=== PATIENT | female | born 1985 | race Caucasian/White ===

== ENCOUNTER 2020-08-13 15:22 | Outpatient (REF) | payer MEDICAID, SELFPAY ==
[2020-08-13 15:04] LABS: C Diff PCR Negative (Negative)
[2020-08-13 20:10] LABS: Campylobacter PCR Negative (Negative); Salmonella PCR Negative (Negative); Shiga Toxin PCR Negative (Negative); Shigella/Enteroinvasive Ecoli Negative (Negative)
[2020-08-14 18:47] LABS: Calprotectin <15.6 mcg/g
== END 2020-08-13 15:23 | disposition home or self-care (01) ==
LOC: NCHCN 15:22
PROVIDERS: Visit Provider Family Medicine
DX: R19.7 Diarrhea, unspecified (principal)
CPT/HCPCS: 87329; 87493; 87505; 83630; 83993

== ENCOUNTER 2021-04-30 17:42 | Outpatient (REF) | payer MEDICAID, SELFPAY ==
[2021-05-02 16:20] LABS: COVID-19 RT-PCR UVMMC Result Negative (Negative)
== END 2021-04-30 17:43 | disposition home or self-care (01) ==
LOC: LBN 17:42
PROVIDERS: Visit Provider Nurse Practitioner Family
DX: Z20.822 Contact with and (suspected) exposure to COVID-19 (principal); J06.9 Acute upper respiratory infection, unspecified
CPT/HCPCS: U0003

== ENCOUNTER 2023-04-24 15:27 | Outpatient (REF) | payer MEDICAID, SELFPAY ==
[2023-04-24 15:01] LABS: HCT 32.6 % (36.0-46.0); MCH 24.6 pg (27.0-33.0); MCHC 30.7 % (32.0-36.0); MCV 80 fL (80-95); MPV 10.2 fL (8.0-11.0); Platelet Count 234 10^3/uL (130-400); RBC 4.07 10^6/uL (3.93-5.22); RDW 13.8 % (11.7-14.6); RDW-SD 39.9 fL; WBC 5.57 10^3/uL (4.4-10.8)
[2023-04-24 15:29] LABS: ALT 18 U/L (14-59); AST 11 U/L (15-37); Alkaline Phosphatase 57 U/L (46-116); Anion Gap 10.8 mmol/L (3-11); BUN 11 mg/dL (7-18); Bilirubin, Total 0.4 mg/dL (0.2-1.0); CO2 26.2 mmol/L (21.0-32.0); CREATININE 0.6 mg/dL (0.55-1.02); Calcium 8.7 mg/dL (8.5-10.1); Chloride 104 mmol/L (98-107); Estimated GFR 118.49 (mL/min/1.73m2); Glucose 87 mg/dL (74-106); Potassium 4.2 mmol/L (3.5-5.1); Sodium 141 mmol/L (136-145); TSH (W/Ref FT4) 0.95 uIU/mL (0.36-3.74); Total Protein 7.1 g/dL (6.4-8.2)
--- OUTSIDE RECORDS SUMMARY | 2023-04-24 15:31 | XMS_ITS | Continuity of Care Document ---
Author Name Unknown Organization [facility] Ambulatory Clinics Address [address] [place] [address] Care Team Providers Care Therapist'S Assistant Name Role Phone TANNER BRENNER Primary Care Physician Encounter [facility] NBR [id number] Date(s): 04/01/22 - 04/01/22 [facility] Ambulatory [facility] [address] [place], [place] [address] Encounter Diagnosis Personal history of cervical dysplasia(Discharge Diagnosis) - 04/01/22 Cervical high risk human papillomavirus (HPV) DNA test positive(Discharge Diagnosis) - 04/01/22 Discharge Disposition: Home or Self Care Attending Physician: Ayah Leyva APRN Allergies, Adverse Reactions, Alerts No Known Medication Allergies Substance Reaction Severity Status Banana Stomach upset Moderate Active Pineapple Stomach upset Moderate Active Functional Status 04/01/22 Other exposure to Infectious Disease Non e Medications Digestive Advantage Daily Probiotics oral capsule 1 cap, Oral, Daily, # 30 cap, 0 Refill(s) Start Date: 03/31/22 Status: Ordered multivitamin adult, oral tablet 1 tab, Oral, Daily, # 30 tab, 0 Refill(s) Start Date: 03/31/22 Status: Ordered Problem List Condition Confirmation Course Effective Dates Status H ealth Status Informant Acne Confirmed Active Altered bowel habits Confirmed Active Anxiety Confirmed Active Chronic diarrhea Confirmed Active Esophagitis Confirmed Active Personal history of cervical dysplasia Confirmed Active Cervical high risk human papillomavirus (HPV) DNA test positive Confirmed Active Dermatitis Confirmed Active Iron deficiency anemia Confirmed Active Lymphocytic colitis Confirmed Active Small intestinal bacterial overgrowth (SIBO) Confirmed Active Procedures Procedure Date Related Diagnosis Body Site Status Colonoscopy 02/2021 Completed EGD - Esophagogastroduodenoscopy 02/2021 Completed Bilateral tubal ligation 12/19/19 Completed Colonoscopy 2014 Completed EGD - Esophagogastroduodenoscopy 2015 Completed Vital Signs Most recent to oldest [Reference Range]: 1 Blood Pressure [90-140/60-90 mmHg] 118/8 2mmHg (04/01/22 4:01 PM) Weight 65.0 kg (04/01/22 4:01 PM) Weight Measured (lbs) 143.3 lb (04/01/22 4:01 PM) [place] Body Weight Calculated 54.7 kg (04/01/22 4:01 PM) Height 162.56 cm (04/01/22 4:01 PM) Height/Length Measured (inches) 64 inch (04/01/22 4:01 PM) BSA Measured 1.71 m2 (04/01/22 4:01 PM) Body Mass Index 24.6 kg/m2 (04/01/22 4:01 PM) Social History Social History Type Response Smoking Status Smoking tobacco use: Never tobacco user;Never entered on: 03/31/22 Sex Female Patient Care team information Care Team Personnel Name: TANNER BRENNER Position: No Access Member Role: Primary Care Physician Address: Address: [address] [place] [address] Care Team Related Persons Name: LOLA COLLADO
[2023-04-24 17:35] LABS: Vitamin B12 437 pg/mL (193-986)
[2023-04-24 18:02] LABS: Ferritin 5 ng/mL (8-252); Folate > 20.0 ng/mL (8.6-20.0)
== END 2023-04-24 15:28 | disposition home or self-care (01) ==
LOC: NCHCN 15:27
PROVIDERS: Visit Provider Family Medicine
DX: D64.9 Anemia, unspecified (principal); R53.83 Other fatigue
CPT/HCPCS: 80053; 85027; 82607; 82728; 82746; 84443

== ENCOUNTER 2023-07-31 17:59 | Outpatient (REF) | payer BC, SELFPAY ==
[2023-07-31 19:31] LABS: HCT 32.4 % (36.0-46.0); HGB 10.3 g/dL (11.2-15.7); MCH 26.6 pg (27.0-33.0); MCHC 31.8 % (32.0-36.0); MCV 84 fL (80-95); MPV 10.8 fL (8.0-11.0); Platelet Count 227 10^3/uL (130-400); RBC 3.87 10^6/uL (3.93-5.22); RDW-SD 45.5 fL; WBC 6.16 10^3/uL (4.4-10.8)
[2023-07-31 20:15] LABS: Ferritin 20 ng/mL (8-252)
== END 2023-07-31 18:00 | disposition home or self-care (01) ==
LOC: NCHCN 17:59
PROVIDERS: Visit Provider Family Medicine
DX: D64.9 Anemia, unspecified (principal)
CPT/HCPCS: 85027; 82728

== ENCOUNTER 2023-11-06 15:54 | Outpatient (REF) | payer BC, SELFPAY ==
--- OUTSIDE RECORDS SUMMARY | 2023-11-06 15:56 | XMS_ITS | Continuity of Care Document ---
Author Name Unknown Organization [facility] Ambulatory Clinics Address [address] [place] [address] Care Team Providers Care Laborer [employer] Name Role Phone ELIDIA HAIRSTON, TANNER Fermin Primary Care Physician [facility]counter [facility] NBR [id number] Date(s): 05/15/23 - 05/15/23 [facility] [address] [place] [address]- Encounter Diagnosis Atypical glandular cells on cervical Pap smear(Discharge Diagnosis) - 05/15/23 Human papillomavirus (HPV) type 18 DNA detected in cervical specimen(Discharge Diagnosis) - 05/15/23 Discharge Disposition: Home or Self Care Attending Physician: Grzegorz Hall MD Allergies, Adverse Reactions, Alerts No Known Medication Allergies Substance Reaction Severity Status Banana Stomach upset Moderate Active Pineapple Stomach upset Moderate Active Assessment and Plan Future Appointments Medications ferrous sulfate 325 mg (65 mg elemental iron) oral delayed release tablet 0 Refill(s) Start Date: 04/28/23 Status: Ordered multivitamin adult, oral tablet 1 tab, Oral, Daily, # 30 tab, 0 Refill(s) Start Date: 03/31/22 Status: Ordered Problem List Condition Confirmation Course Effective Dates Status H ealt Status Informant Acne Confirmed Active Altered bowel habits Confirmed Active Anxiety Confirmed Active Atypical glandular cells on cervical Pap smear Confirmed Active Chronic diarrhea Confirmed Active Esophagitis Confirmed Active Personal history of cervical dysplasia Confirmed Active Human papillomavirus (HPV) type 18 DNA detected in cervical specimen Confirmed Active Cervical high risk human papillomavirus (HPV) DNA test positive Confirmed Active Dermatitis Confirmed Active Iron deficiency anemia Confirmed Active Lymphocytic colitis Confirmed Active Small intestinal bacterial overgrowth (SIBO) Confirmed Active Procedures Procedure Date Related Diagnosis Body Site Status Colonoscopy 02/2021 Completed EGD - Esophagogastroduodenoscopy 02/2021 Completed Bilateral tubal ligation 12/19/19 Completed Colonoscopy 2014 Completed EGD - Esophagogastroduodenoscopy 2014 Completed Vital Signs Most recent to oldest [Reference Range]: 1 Blood Pressure [90-140/60-90 mmHg] 124/6 6mmHg (05/15/23 9:03 AM) Mean Arterial Pressure, Cuff [70-110 mmH g] 85 mmHg (05/15/23 9:03 AM) Weight 62.1 kg (05/15/23 9:03 AM) Weight Measured (lbs) 136.907 lb (05/15/23 9:03 AM) Weight Dosing 62.100 kg (05/15/23 9:03 AM) [place] Body Weight Calculated 54.7 kg (05/15/23 9:03 AM) Height 162.56 cm (05/15/23 9:03 AM) Height/Length Measured (inches) 64 inch (05/15/23 9:03 AM) BSA Measured 1.67 m2 (05/15/23 9:03 AM) Body Mass Index 23.5 kg/m2 (05/15/23 9:03 AM) Social History Social History Type Response Smoking Status Smoking tobacco use: Never tobacco user;Never entered on: 04/28/23 Sex Female Physician Outpatient Note * Grzegorz Hall MD: PERFORM Event Display: Office Clinic Note Physician Authored Date: [id number] OXANA COLLADO :1985 Age:38 years Sex:Female Visit Date:05/15/2023 Primary Care Physician: TANNER BRENNER MD Chief Complaint Colposcopy; PAP 04/28/2023: Atypical Endocervical Cells, + HR HPV non 16/18 and type 18 detected History of Present Illness 38yo Female, The patient is here today for a Colposcopy appointment. ??Her last Pap smear on 04/28/2023 returnedshowing Atypical Endocervical Cells (AGC), Not otherwise specified (NOS). ??She was also Positive for High Risk HPV Type-18 and??non- 16/18 HPV DNA.?? She has a history of abnormal Pap smears??and Colposcopy. ??She had Colposcopy on??06/06/2015.?? At that time??2 cervical biopsies were taken that were negative for dysplasia. ?? Abnormal pap smears: 07/31/2020 LSIL, positive HR HPV 18 and non 16/18; 07/14/2017 neg pap, neg HR HPV; 07/03/2016-neg pap, neg hpv, 05/03/2015 neg/+ HPV 18. COLPO 05/2015 Physical Exam Vitals & Measurements BP:??124/66?? HT:??162.56??cm?? WT:??62.1??kg?? BMI:??23.5?? BSA:??1.67?? General: Alert and oriented, well nourished, no acute distress Eye: Pupils equal, EOMI HEENT: Normocephalic, grossly normal hearing, moist oral mucosa, no scleral icterus Lungs: Clear to auscultation, non-labored respiration Heart: Normal rate, regular rhythm, no murmurs Musculoskeletal: Grossly normal range of motion and strength, no tenderness or swelling Skin: Skin is warm, dry, no rashes Neurologic: Awake, alert, and oriented X4 Psychiatric: Cooperative, appropriate mood and affect ?? Vulva: Normal external female genitalia, [place]???s and [place]???s glands normal Bladder: Urethra normal Vagina: No abnormal discharge or blood Cervix: Normal appearance Perineum/Anus: No skin changes or hemorrhoids Procedure COLPOSCOPY: A speculum was placed into the vagina and acetic acid applied to the cervix.?? The Colposcope was used to visualize the cervix under magnification.?? The??colposcopy was Adequate as the full squamocolumnar junction was visualized.?? After viewing the cervix, there were??No??acetowhite??lesions seen.?The cervical Curettings (ECC) were obtained.?Blood loss was minimal. ??The patient toleratedthe procedure well. ?? ENDOMETRIAL BIOPSY: The cervix was visualized and cleaned with??Betadine.?The endometrial Pipelle was easily inserted through the cervical os into the endometrial cavity.?? The endometrial Pipelle was removed. ??Adequate??tissue??was obtained??to send to Pathology. ??The??instruments were removed from the vagina.??There was minimal bleeding.?? The patient??tolerated the procedure well. Assessment/Plan 1.??Atypical glandular cells on cervical Pap smear??R87.619 Ordered: Outside Lab Request, 05/15/23 10:20:00 EST, Stop date 05/15/23 10:20:00 EST, Genpath: ECC and EMB, Atypical glandular cells on cervical Pap smear Human papillomavirus (HPV) type 18 DNA detected in cervical specimen ?? 2.??Human papillomavirus (HPV) type 18 DNA detected in cervical specimen??R87.810 Ordered: Outside Lab Request, 05/15/23 10:20:00 EST, Stop date 05/15/23 10:20:00 EST, Genpath: ECC and EMB, Atypical glandular cells on cervical Pap smear Human papillomavirus (HPV) type 18 DNA detected in cervical specimen ?? At today's appointment, we reviewed her??Pap smear results. ??I discussed??cervical dysplasia,??HPV, and risk for??cervical cancer. I then reviewed the patient's risk factors and explained their rolein her disease process.?? She was??consented for colposcopy??and??endometrial biopsy.?? I explainedhow the procedure is performed with the application of acetic acid??to the cervix, usage of a Colposcope??to visualize the cervix under magnification, and the possibility of ECC, cervical biopsy or both.?? She emptied her bladder, and we then moved forward with the procedure.?? Today's Colposcopy was Negative.?? An ECC was??obtained and sent to the lab.?? Endometrial Biopsy was done. ??If the results are??Negative or contain??a low-grade??lesion, then??follow-up Pap smear and HPV screening is??recommended in 12 months. ??If there is a high-grade lesion present then an outpatient surgical proce dure??is??likely required to excise the??abnormal??precancerous cells. Problem List/Past Medical History Ongoing Acne Altered bowel habits Anxiety Atypical glandular cells on cervical Pap smear Cervical high risk human papillomavirus (HPV) DNA test positive Chronic diarrhea Dermatitis Esophagitis Human papillomavirus (HPV) type 18 DNA detected in cervical specimen Iron deficiency anemia Lymphocytic colitis Personal history of cervical dysplasia Small intestinal bacterial overgrowth (SIBO) Historical Procedure/Surgical History ???Colonoscopy (02/2021)???EGD - Esophagogastroduodenoscopy (02/2021)???Bilateral tubal ligation (12/20/2019)???Colonoscopy (2014)???EGD - Esophagogastroduodenoscopy (2014) Medications ferrous sulfate 325 mg (65 mg elemental iron) oral delayed release tablet multivitamin adult, oral tablet, 1 tab, Oral, Daily Allergies Banana??(Stomach upset) Pineapple??(Stomach upset) No Known Medication Allergies Social History Alcohol Never Electronic Cigarette/Vaping Electronic Cigarette Use: Never. Employment/School Employed, Work/School description: [employer]. Highest education level: University degree(s). Exercise Home/Environment Lives with Children, Significant other. Living situation: Home/Independent. Sexual Sexually active: Yes. Substance Use Never Tobacco Never tobacco user Tobacco Use:. Never Smokeless Tobacco use:. Family History Alive and well: Daughter, Son, Son, Son and Son. Cancer: Sister. Diabetes mellitus: Brother. Healthy adult: Mother and Father.Negative: Sister and Brother. Electronically Signed on 05/15/23 11:39 AM Grzegorz Hall MD Patient Care team information Care Team Personnel Name: TANNER BRENNER MD Position: No Access Member Role: Primary Care Physician Address: Address: [address] [place] [id number] [place] [address] Care Team Related Persons Name: LOLA COLLADO Name: BILL COREY Address: Home [address] [place] [phone] [facility]
--- OUTSIDE RECORDS SUMMARY | 2023-11-06 15:56 | XMS_ITS | Continuity of Care Document ---
Author Name Unknown Organization [facility] Ambulatory Clinics Address [address] [place] [address] Care Team Providers Care Software Configuration Manager Name Role Phone ELIDIA TANNER Fermin Primary Care Physician Encounter [facility] NBR [id number] Date(s): 04/28/23 - 04/28/23 [facility] Ambulatory Clinics [address] [place] [address]- [place] Encounter Diagnosis Pap smear for cervical cancer screening(Discharge Diagnosis) - 04/28/23 Visit for routine refrigerator tester exam(Discharge Diagnosis) - 04/28/23 Discharge Disposition: Home or Self Care Attending Physician: Ayah Leyva APRN Allergies, Adverse Reactions, Alerts No Known Medication Allergies Substance Reaction Severity Status Banana Stomach upset Moderate Active Pineapple Stomach upset Moderate Active Assessment and Plan Future Appointments Medications Digestive Advantage Daily Probiotics oral capsule 1 cap, Oral, Daily, # 30 cap, 0 Refill(s) Start Date: 03/31/22 Status: Ordered ferrous sulfate 325 mg (65 mg elemental [...] [Reference Range]: 1 Blood Pressure [90-140/60-90 mmHg] 128/8 2mmHg (04/28/23 3:37 PM) Mean Arterial Pressure, Cuff [70-110 mmH g] 97 mmHg (04/28/23 3:37 PM) Weight 64.1 kg (04/28/23 3:37 PM) Weight Measured (lbs) 141.316 lb (04/28/23 3:37 PM) Weight Dosing 64.100 kg (04/28/23 3:37 PM) [place] Body Weight Calculated 54.7 kg (04/28/23 3:37 PM) Height 162.56 cm (04/28/23 3:37 PM) Height/Length Measured (inches) 64 inch (04/28/23 3:37 PM) BSA Measured 1.7 m2 (04/28/23 3:37 PM) Body Mass Index 24.26 kg/m2 (04/28/23 3:37 PM) Social History Social History Type Response Smoking Status Smoking tobacco use: Never tobacco user;Never entered on: 04/28/23 Sex Female Physician Outpatient Note * Ayah Leyva APRN: PERFORM Event Display: Office Clinic Note Physician Authored Date: [id number] OXANA COLLADO :1985 Age:38 years Sex:Female Visit Date:04/28/2023 Primary Care Physician: TANNER BRENNER Chief Complaint Follow up PAP no other concerns History of Present Illness VP PLATFORMS History:?When reviewing the menstrual history:??she states her cycles are monthly and regular.??Quite heavy and painful the first two days. ?Her pap smear history is: Remarkable for cervical dysplasia, repap today.?Last Pap:??09/11/2021 Neg/Neg HPV 02/21/2021 Neg/Neg HPV..?? Abnormal pap smears: 07/31/2020 LSIL, positive HR HPV 18 and non 16/18; 07/14/2017 neg pap, neg HR HPV; 07/03/2016-neg pap, neg hpv, 05/03/2015 neg/+ HPV 18. COLPO 05/2015.?For contraception??she depends on: Vasectomy ?Vaginal discharge??is minimal..?Her breast health is??relatively unremarkable.. ? Pain with intercourse: absent ?In review of her sexual relationship:? When discussing exercise she says: hopes to do more?? Review of Systems GENERAL??Overall she feels well.. VP PLATFORMS??Aside from those issues noted above, the patient doesn't have any other complaints..?? Physical Exam Vitals & Measurements BP:??128/82?? HT:??162.56??cm?? WT:??64.1??kg?? BMI:??24.26?? BSA:??1.7?? [facility] General Physical Exam:?GENERAL?Alert and oriented, well nourished, no acute distress Reasonable historian.?EYES Pupils equal ? HEENT Normocephalic, grossly normal hearing, moist oral mucosa ? NECK?Supple, no thyroid enlargement, no lymphadenopathy?RESPIRATORY?Clear to auscultation, non-labored respiration ?CARDIAC?Normal rate, regular rhythm, no murmurs ?EXTREMITIES?Grossly normal exam..?MUSCULOSKELETAL?Grossly normal strength bilaterally..?BREAST EXAM?Nipples bilaterally appear normal. No worrisome masses or nipple discharge. Bilateral axillas are free of any worrisome lymphadenopathy..?? [facility] Pelvic Exam:?EXTERNAL GENITALIA?Labia majora and minora bilaterally are normal in appearance., Introitus is normal in external appearance..?VAGINA?Healthy rugated mucosa..?VAGINAL DISCHARGE?Thin, minimal, white discharge..?CERVIX?Healthy in appearance. Pap collected?UTERUS?Small and normal in contours., Uterus is nontender.??Adnexal areas bilaterally are normal in size and are nontender..? Assessment/Plan 1.??Visit for routine refrigerator tester exam??Z01.419 We discussed general health maintenance and improvement strategies. Maintaining a healthy diet richin Calcium, Vitamin D, and [place] 3s is recommended for overall health. ??Magnesium is often depleted in women. Taking Magnesium 250 mg daily can be helpful to decrease inflammation, headache prevention, improves cramping, sleep benefits, and help with bowels. I encouraged her to consider making time in her busy schedule for regular exercise, at least 30 minutes most days of the week.? Regarding her cycle, I recommended she consider??daily??Magnesium 250 mg, [place] 3s, (along with the Vit D 800 IUs) and add Ibuprofen 600 mg every 4 hours, a day prior to cycle all to help reduce inflammatory response with menstrual cycle. This may, in part, along with light exercise also improvePMS type symptoms, cramping, and flow. We briefly discussed contraceptive options that may also be helpful including the OCP and Mirena IUD. ?? 2.??Pap smear for cervical cancer screening??Z12.4 Hopefully things continue to move in the right direction. Last two Paps have been Neg/Neg. Ordered: Outside Lab Request, 04/28/23 16:05:00 EST, Stop date 04/28/23 16:05:00 EST, [facility]path PAP + PAP ependent HPV, Pap smear for cervical cancer screening ?? Follow Up Instructions prn, one year Problem List/Past Medical History Ongoing Acne Altered bowel habits Anxiety Cervical high risk human papillomavirus (HPV) DNA test positive Chronic diarrhea Dermatitis Esophagitis Iron deficiency anemia Lymphocytic colitis Personal history of cervical dysplasia Small intestinal bacterial overgrowth (SIBO) Historical Procedure/Surgical History ???Colonoscopy (02/2021)???EGD - Esophagogastroduodenoscopy (02/2021)???Bilateral tubal ligation (12/20/2019)???Colonoscopy (2014)???EGD - Esophagogastroduodenoscopy (2014) Medications Digestive Advantage Daily Probiotics oral capsule, 1 cap, Oral, Daily ferrous sulfate 325 mg (65 mg elemental iron) oral delayed release tablet multivitamin adult, oral tablet, 1 tab, Oral, Daily Allergies Banana??(Stomach upset) Pineapple??(Stomach upset) No Known Medication Allergies Social History Alcohol Never Electronic Cigarette/Vaping Electronic Cigarette Use: Never. Employment/School Employed, Work/School description: [employer]. Highest education level: University degree(s). Exercise Home/Environment Lives with Children, Significant other. Living situation: Home/Independent. Sexual Sexually active: Yes. Substance Use Never Tobacco Never tobacco user Tobacco Use:. Never Smokeless Tobacco use:. Family History Cancer: Sister. Diabetes mellitus: Brother. Healthy adult: Mother and Father.Negative: Sister and Brother. Electronically Signed on 04/29/23 06:32 AM Ayah Leyva APRN Patient Care team information Care Team Personnel Name: TANNER BRENNER Position: No Access Member Role: Primary Care Physician Address: Address: [address] [place] [id number] [place] Care Team Related Persons Name: LOLA COLLADO Name: BILL COREY Address: Home [address] [place], [place] [id number] [facility]
[2023-11-06 18:11] LABS: HCT 42.4 % (36.0-46.0); HGB 14.2 g/dL (11.2-15.7); MCH 29.4 pg (27.0-33.0); MCHC 33.5 % (32.0-36.0); MCV 88 fL (80-95); MPV 10.4 fL (8.0-11.0); Platelet Count 220 10^3/uL (130-400); RBC 4.83 10^6/uL (3.93-5.22); RDW 12.7 % (11.7-14.6); RDW-SD 41.1 fL; WBC 7.05 10^3/uL (4.4-10.8)
[2023-11-06 18:48] LABS: Ferritin 29 ng/mL (8-252)
== END 2023-11-06 15:55 | disposition home or self-care (01) ==
LOC: NCHCN 15:54
PROVIDERS: Visit Provider Family Medicine
DX: D50.9 Iron deficiency anemia, unspecified (principal)
CPT/HCPCS: 85027; 82728

== ENCOUNTER 2025-02-17 11:43 | Outpatient (REF) | payer BC, SELFPAY ==
[2025-02-17 15:41] LABS: HCT 35.6 % (36.0-46.0); HGB 11.5 g/dL (11.2-15.7); MCH 27.8 pg (27.0-33.0); MCHC 32.3 % (32.0-36.0); MCV 86 fL (80-95); MPV 10.2 fL (8.0-11.0); Platelet Count 228 10^3/uL (130-400); RBC 4.13 10^6/uL (3.93-5.22); RDW 13.1 % (11.7-14.6); RDW-SD 41.1 fL; WBC 4.48 10^3/uL (4.4-10.8)
[2025-02-17 16:04] LABS: Ferritin 7 ng/mL (8-252)
== END 2025-02-17 11:44 | disposition home or self-care (01) ==
LOC: NCHCN 11:43
PROVIDERS: Visit Provider Family Medicine
DX: D50.9 Iron deficiency anemia, unspecified (principal)
CPT/HCPCS: 85027; 82728